=== PATIENT | female | born 1975 | race Caucasian/White ===

== ENCOUNTER 2021-12-12 09:15 | Outpatient (CLI) | payer BC, SELFPAY ==
[2021-12-12 14:23] LABS: Chloride* 103 mmol/L (96-114); Potassium* 4.3 mmol/L (3.6-5.1); Sodium* 135 mmol/L (135-149)
[2021-12-12 14:26] LABS: Alanine Aminotransferase* 26 U/L (4-35); Blood Urea Nitrogen* 15 mg/dL (5-24); Carbon Dioxide* 26 mmol/L (20-32); Cholesterol* 195 mg/dL (90-199); Creatinine* 0.7 mg/dL (0.5-1.5); Estimated Glomerular Filt Rate 108 ml/min; Glucose* 132 mg/dL (60-115); Triglycerides* 108 mg/dL (40-149)
[2021-12-12 14:27] LABS: Calcium* 8.3 mg/dL (8.4-10.6); HDL Cholesterol* 110 mg/dL (>=50); LDL Cholesterol Calculated 63 mg/dL (<100)
== END 2021-12-12 09:16 | disposition home or self-care (01) ==
PROVIDERS: PCP Family Medicine; Visit Provider Family Medicine
DX: I10 Essential (primary) hypertension (principal); E03.9 Hypothyroidism, unspecified; E11.9 Type 2 diabetes mellitus without complications; L40.9 Psoriasis, unspecified; E55.9 Vitamin D deficiency, unspecified; E53.8 Deficiency of other specified B group vitamins
CPT/HCPCS: 80048; 80061; 84443; 84460

== ENCOUNTER 2022-03-02 10:08 | Outpatient (CLI) | payer BC, SELFPAY ==
--- NOTE | 2022-03-02 10:15 | CRLHL7_ITS ---
For Patients: As a result of the Century Cures Act, medical imaging exams and procedure reports are released immediately into your electronic medical record. You may view this report before your referring provider. If you have questions, please contact your health care provider. BILATERAL SCREENING MAMMOGRAM WITH COMPUTER-AIDED DETECTION TECHNIQUE: CC and MLO views were obtained. These mammographic images have been obtained using full-field digital technique. These mammographic images were interpreted with the benefit of computer-aided detection. COMPARISON FILM: 05/23/16. FINDINGS: There are scattered areas of fibroglandular density IMPRESSION: There is no radiographic evidence for malignancy. ASSESSMENT: BI-RADS Category 2: Benign RECOMMENDATION: Routine screening mammogram in 1 year. A lay language report of this examination will be provided to the patient. NOEMY CROCKER M.D. Diagnostic/Nuclear Medicine Radiologist [email or web address] KEVIN:vy Transcribed: 3:43 [email or web address].mReji [email or web address]/Dictated by: Noemy Crocker MD @ 03/05/2022 8:37:00 AM (Electronically Signed)
== END 2022-03-02 10:09 | disposition home or self-care (01) ==
LOC: MAMMO 10:09
PROVIDERS: PCP Family Medicine; Visit Provider Family Medicine
DX: Z12.31 Encounter for screening mammogram for malignant neoplasm of breast (principal)
CPT/HCPCS: 77067

== ENCOUNTER 2023-03-12 08:27 | Outpatient (CLI) | payer BC, SELFPAY | END 2023-03-12 08:28 | disposition home or self-care (01) | PROVIDERS: PCP Family Medicine; Visit Provider Family Medicine | DX: E11.9 Type 2 diabetes mellitus without complications (principal); I10 Essential (primary) hypertension; E03.9 Hypothyroidism, unspecified | CPT/HCPCS: 80048; 80061; 84443; 84460; 85025 ==

== ENCOUNTER 2024-03-30 08:56 | Outpatient (CLI) | payer OTHER, SELFPAY | END 2024-03-30 08:57 | disposition home or self-care (01) | PROVIDERS: PCP Family Medicine; Visit Provider Family Medicine | DX: E03.9 Hypothyroidism, unspecified (principal); E55.9 Vitamin D deficiency, unspecified; I10 Essential (primary) hypertension; Z13.220 Encounter for screening for lipoid disorders | CPT/HCPCS: 80048; 80061; 82306; 84443 ==

== ENCOUNTER 2024-06-19 10:05 | Outpatient (CLI) | payer OTHER, SELFPAY ==
--- NOTE | 2024-06-19 10:15 | CRLHL7_ITS ---
For Patients: As a result of the Century Cures Act, medical imaging exams and procedure reports are released immediately into your electronic medical record. You may view this report before your referring provider. If you have questions, please contact your health care provider. INDICATION: BILATERAL SCREENING MAMMOGRAM, ASYMPTOMATIC 49 Y/O FEMALE COMPARISON: 11/30/2022, 05/23/2016 TECHNIQUE: CC and MLO views were obtained. These mammographic images have been obtained using full-field digital technique. These mammographic images were interpreted with the benefit of computer aided detection and tomosynthesis. BREAST COMPOSITION: There are scattered areas of fibroglandular density. FINDINGS: No suspicious findings. ASSESSMENT: BI-RADS 2 Benign RECOMMENDATION: Annual screening mammogram. A lay language report of this examination will be provided to the patient. Dictated by: Paulino Lamb MD @ 06/19/2024 12:28:05 (Electronically Signed)
== END 2024-06-19 10:06 | disposition home or self-care (01) ==
LOC: MAMMO 10:06
PROVIDERS: PCP Family Medicine; Visit Provider Family Medicine
DX: Z12.31 Encounter for screening mammogram for malignant neoplasm of breast (principal)
CPT/HCPCS: 77063; 77067

== ENCOUNTER 2024-07-23 11:53 | Outpatient (CLI) | payer OTHER, SELFPAY | END 2024-07-23 11:54 | disposition home or self-care (01) | LOC: FBOREF 11:55 | PROVIDERS: PCP Family Medicine; Visit Provider Family Medicine | DX: H60.00 Abscess of external ear, unspecified ear (principal) | CPT/HCPCS: 87070 ==

== ENCOUNTER 2024-08-07 09:18 | Day surgery (SDC) | payer OTHER, SELFPAY ==
[2024-08-07 09:30] VITALS: BP 113/71; PULSE 88; RESP 16; TEMP 37.2; O2SAT 99; BMI 38.0
[2024-08-07 11:04] VITALS: BP 110/62; PULSE 72; RESP 16; O2SAT 100
[2024-08-07 11:09] VITALS: BP 112/69; PULSE 72; RESP 16; O2SAT 100
[2024-08-07 11:14] VITALS: BP 112/65; PULSE 78; RESP 22; O2SAT 100
[2024-08-07 11:19] VITALS: BP 110/60; PULSE 77; RESP 20; O2SAT 100
--- NOTE | 2024-08-07 11:24 | SUR.PHASEI ---
Intraoperative vital signs charted on PACU I vital signs worksheet.
--- NOTE | 2024-08-07 11:28 | W.PM.ENTPROC ---
Procedure Note Date of procedure: 08/07/24 Procedure: Preoperative diagnosis: Space space Recurrent left auricular hematoma, recent (within 24 hours) infection of same Postoperative diagnosis same Procedure incision drainage left auricular hematoma with placement of a Mejia drain and placement of dental rolls sewn on either side for compression Patient was brought the operating room prepped and draped usual fashion. The inferior aspect of the hematoma was injected with 1% lidocaine 1 0 her 1000 adrenaline. The back of the ear was also injected. A total of 1 mL was actually injected the right remainder was lost to the hematoma. A 15 blade was used to incise the inferior aspect of the seroma. This was then irrigated and a Mejia drain placed and secured to the edges of the incision. A dental roll was placed on each side and secured with a 2 0 nylon suture to provide compression to the seroma. The patient procedure well was taken recovery satisfactory condition. External dressing consisting of fluffs and Kerlix was applied. Blood loss was less than 10 mL. Surgeon: Daquan Austin MD
[2024-08-07 11:33] VITALS: BP 118/91; PULSE 88; RESP 16; TEMP 36.8; O2SAT 100
== END 2024-08-07 11:35 | disposition home or self-care (01) ==
PROVIDERS: PCP Family Medicine; Visit Provider Otolaryngology
PROC: (CPT 69005; principal; 2024-08-07 12:00)
DX: H61.122 Hematoma of pinna, left ear (principal)
CPT/HCPCS: 69005

== ENCOUNTER 2025-02-01 11:18 | Outpatient (CLI) | payer OTHER, SELFPAY | END 2025-02-01 11:19 | disposition home or self-care (01) | PROVIDERS: PCP Family Medicine; Visit Provider Family Medicine | DX: I10 Essential (primary) hypertension (principal); L40.9 Psoriasis, unspecified; E11.9 Type 2 diabetes mellitus without complications; Z79.4 Long term (current) use of insulin; E03.9 Hypothyroidism, unspecified | CPT/HCPCS: 80048; 84443; 84460; 85025 ==